=== PATIENT | female | born 1990 | race African-American/Black ===

== ENCOUNTER 2019-11-10 11:46 | Inpatient (IN) | payer OTHER ==
--- NOTE | 2019-11-10 12:10 | BHS.RME ---
Substance Use & Tx History - Substance Use History Heroin Substance amount: 10 bags Frequency of use: Daily Substance route: Inhalation (ex: sniffing or snorting) Date of Last Use: 11/09/19 (11am) Cocaine-Crack Substance amount: $100 Frequency of use: Daily Substance route: Smoking Date of Last Use: 11/10/19 Alcohol Substance amount: 2 six pack beers Frequency of use: Daily Substance route: Oral Date of Last Use: 11/10/19 Nicotine Substance amount: 1 pack Frequency of use: Daily Substance route: Smoking Date of Last Use: 11/10/19 Physical/Psych/Mental Status - Behavior General Behavior: Increased activity (restlessness, agitation) Eye Contact: Normal - Cooperativeness Cooperativeness: Cooperative - Thinking Thought Processes: Tight, Logical, Goal Directed - Physical Health Problems Is patient presently having any pain?: No Does patient presently have any injuries (include location): No Does patient currently have a fever: No Is patient : No COWS - Scale Resting Pulse: 0= [place] 80 or Below Sweatin= Chills/Flushing Restless Observation: 3= Extraneous Movement Pupil Size: 1= Pupils >than Normal Bone or Joint Aches: 2= Severe Diffuse Aches Runny Nose/ Eye Tearin= Nasal Congestion GI Upset > 30mins: 2= Nausea/Diarrhea Tremor Observation: 1= Tremor [place], Not Seen Yawning Observation: 1= 1-2x During Session Anxiety or Irritability: 1=Feels Anxious/Irritable Goose Flesh Skin: 0=Smooth Skin COWS Score: 13 CIWA Nausea/Vomitin-No Nausea/No Vomiting Muscle Tremors: 2 Anxiety: 4-Mod. Anxious/Guarded Agitation: 4-Moderately Restless Paroxysmal Sweats: 1-Minimal Palms Moist Orientation: 0-Oriented Tacttile Disturbances: 0-None Auditory Disturbances: 0-None Visual Disturbances: 0-None Headache: 0-None Present CIWA-Ar Total Score: 11
--- NOTE | 2019-11-10 12:42 | HP ---
COWS - Scale Resting Pulse: 0= [place] 80 or Below Sweatin= Chills/Flushing Restless Observation: 3= Extraneous Movement Pupil Size: 1= Pupils >than Normal Bone or Joint Aches: 2= Severe Diffuse Aches Runny Nose/ Eye Tearin= Nasal Congestion GI Upset > 30mins: 2= Nausea/Diarrhea Tremor Observation: 1= Tremor [place], Not Seen Yawning Observation: 1= 1-2x During Session Anxiety or Irritability: 1=Feels Anxious/Irritable Goose Flesh Skin: 0=Smooth Skin COWS Score: 13 CIWA Score Nausea/Vomitin-No Nausea/No Vomiting Muscle Tremors: 2 Anxiety: 4-Mod. Anxious/Guarded Agitation: 4-Moderately Restless Paroxysmal Sweats: 1-Minimal Palms Moist Orientation: 0-Oriented Tacttile Disturbances: 0-None Auditory Disturbances: 0-None Visual Disturbances: 0-None Headache: 0-None Present CIWA-Ar Total Score: 11 - Admission Criteria [facility] Guidelines: Admission for Medically Managed Detox: Requires at least one of the followin. CIWA greater than 12 2. Seizures within the past 24 hours 3. Delirium tremens within the past 24 hours 4. Hallucinations within the past 24 hours 5. Acute intervention needed for co occurring medical disorder 6. Acute intervention needed for co occurring psychiatric disorder 7. Severe withdrawal that cannot be handled at a lower level of care (continued vomiting, continued diarrhea, abnormal vital signs) requiring intravenous medication and/or fluids 8. Admitting History and Physical - Admission Chief Complaint: " I want to detox from drugs. I want to be health again." History of Present Illness: 29 year old female with history of alcohol dependence and opioid dependence, cocaine use disorder and nicotine dependence. She is new to us but saw her PMD 5 days ago and told she has bronchitis but did not get any antibiotics. He has attempted detox in the past and failed. Substance Use & Tx History - Substance Use History Heroin Substance amount: 10 bags Frequency of use: Daily Substance route: Inhalation (ex: sniffing or snorting) Date of Last Use: 11/09/19 (11am) Cocaine-Crack Substance amount: $100 Frequency of use: Daily Substance route: Smoking Date of Last Use: 11/10/19 Alcohol Substance amount: 2 six pack beers Frequency of use: Daily Substance route: Oral Date of Last Use: 11/10/19 Nicotine Substance amount: 1 pack Frequency of use: Daily Substance route: Smoking Date of Last Use: 11/10/19 PMH: Asthma Psurg: Left Ovarian cyst removal Psych: Bipolar Disorder Lives with mother in [facility] and has no legal problems pending. Urine Tox: positive for THC, JOCELYN, FEN, MOP, BZO....she denies using benzo and may be in the heroin she is using. CIWA=11 COWS =13 Patient meets criteria for detox as she lacks insight into her disorder and is at high risk for overdose as she's overdosed 3 times in the past, last one in 04/2019 History Source: Patient Limitations to Obtaining History: No Limitations - Past Medical History Pulmonary: Yes: Asthma Psych: Yes: Bipolar - Past Surgical History Past Surgical History: Yes: Oopherectomy - Smoking History Smoking history: Current every day smoker Have you smoked in the past 12 months: Yes Aproximately how many cigarettes per day: 20 - Alcohol/Substance Use Hx Alcohol Use: Yes Number of Drinks Daily: 12 History of Substance Use: reports: Cocaine, Heroin Date of Last Use: 11/10/19 - Social History Usual Living Arrangement: Yes: Alone Do you think of yourself as: Straight/Heterosexual ADL: Independent Occupation: unemployed History of Recent Travel: No Admission [facility] Exam Limitations: No Limitations - Ebola screening Have you traveled outside of the country in the last 21 days: No Have you had contact with anyone from an Ebola affected area: No Have you been sick,other than usual withdrawal symptoms: No Do you have a fever: No - Review of Systems Constitutional: Chills, Unintentional Wgt. Loss EENT: reports: No Symptoms Reported Respiratory: reports: No Symptoms reported Cardiac: reports: No Symptoms Reported GI: reports: No Symptoms Reported : reports: No Symptoms Reported Musculoskeletal: reports: No Symptoms Reported Integumentary: reports: No Symptoms Reported Neuro: reports: No Symptoms reported Endocrine: reports: No Symptoms Reported Hematology: reports: No Symptoms Reported Psychiatric: reports: Judgement Intact, Mood/Affect Appropiate, Orientated x3, Agitated, Anxious Other Systems: Reviewed and Negative Patient History - Patient Medical History Hx Anemia: No Hx Asthma: Yes Hx Chronic Obstructive Pulmonary Disease (COPD): No Hx Cancer: No Hx Cardiac Disorders: No Hx Congestive Heart Failure: No Hx Hypertension: No Hx Hypercholesterolemia: No Hx Pacemaker: No HX Cerebrovascular Accident: No Hx Seizures: No Hx Dementia: No Hx Diabetes: No Hx Gastrointestinal Disorders: No Hx Liver Disease: No Hx Genitourinary Disorders: No Hx Sexually Transmitted Disorders: No Hx Renal Disease (ESRD): No Hx Thyroid Disease: No Hx Human Immunodeficiency Virus (HIV): No (tested 2 weeks ago negative) Hx Hepatitis C: No (tested 2 weeks ago negative) Hx Depression: No Hx Suicide Attempt: No Hx Bipolar Disorder: Yes Hx Schizophrenia: No - Patient Surgical History Past Surgical History: Yes Hx Neurologic Surgery: No Hx Cataract Extraction: No Hx Cardiac Surgery: No Hx Lung Surgery: No Hx Breast Surgery: No Hx Breast Biopsy: No Hx Abdominal Surgery: No Hx Appendectomy: No Hx Cholecystectomy: No Hx Genitourinary Surgery: No Hx Section: No Hx Orthopedic Surgery: No Hx Hysterectomy: No Other Surgical History: left ovarian cyst removal Anesthesia Reaction: No - PPD History Previous Implant?: Yes Documented Results: Negative w/o proof Implanted On Prior [facility] Admission?: No PPD to be Administered?: Yes - Reproductive History Patient is a Female of Child Bearing Age (11 -55 yrs old): Yes Last Menstrual Period: 08/18/19 (irregular periods) Patient : No - Smoking Cessation Smoking history: Current every day smoker Have you smoked in the past 12 months: Yes Aproximately how many cigarettes per day: 20 Hx Chewing Tobacco Use: No Initiated information on smoking cessation: Yes 'Breaking Loose' booklet given: 11/10/19 - Substances abused Alcohol Substance route: Oral Frequency: Daily Amount used: 2 six packs beers Age of first use: 12 Date of last use: 11/10/19 Heroin Substance route: Inhalation Frequency: Daily Amount used: 10 bags Age of first use: 28 Date of last use: 11/10/19 Crack Substance route: Smoking Frequency: Daily Amount used: $100 Age of first use: 27 Date of last use: 11/10/19 Admission Physical Exam BHS - Physical General Appearance: Yes: Thin, Tremorous, Irritable, Sweating, Anxious HEENTM: Yes: EOMI, Hearing grossly Normal, Normal ENT Inspection, Normocephalic, Normal Voice, YEHUDA, Pharynx Normal, Tm's normal Respiratory: Yes: Chest Non-Tender, Lungs Clear, Normal Breath Sounds, No Respiratory Distress, No Accessory Muscle Use Neck: Yes: No masses,lesions,Nodules, Supple, Trachea in good position Breast: Yes: Breast Exam Deferred Cardiology: Yes: Regular Rhythm, S1, S2, Tachycardia Abdominal: Yes: Non Tender, Flat, Increased Bowel Sounds Genitourinary: Yes: Within Normal Limits Back: Yes: Normal Inspection Musculoskeletal: Yes: full range of Motion, Gait Steady, Pelvis Stable Extremities: Yes: Normal Capillary Refill, Normal Inspection, Normal Range of Motion, Non-Tender Neurological: Yes: hand packager II-XII NML intact, Fully Oriented, Alert, Motor Strength 5/5, Normal Mood/Affect, Normal Response Integumentary: Yes: Normal Color, Dry, Warm Lymphatic: Yes: Within Normal Limits - Diagnostic (1) Alcohol dependence with withdrawal Current Visit: Yes Status: Acute (2) Opioid dependence with withdrawal Current Visit: Yes Status: Acute (3) Cocaine use disorder Current Visit: Yes Status: Acute (4) Nicotine dependence Current Visit: Yes Status: Acute (5) Asthma Current Visit: Yes Status: Acute (6) Bipolar disorder Current Visit: Yes Status: Acute Cleared for Admission [facility] - Detox or Rehab [facility] Level of Care: Medically Managed Detox Regimen/Protocol: Methadone/Librium Claeared for Rehab Admission: No Screened but not Admitted - Documentation of Visit Screened but not Admitted: No Breathalyzer - Breathalyzer Breathalyzer: 0.004 Inpatient Rehab Admission - Rehab Decision to Admit Inpatient rehab admission?: No
[2019-11-10] MEDS ORDERED: MAGNESIUM CITRATE 300 ML BOTTLE PO PRN (12:56)
[2019-11-10] MEDS ORDERED: METHADONE HCL 10 MG TABLET (FOR DETOX USE ONLY) PO ONE (12:56)
[2019-11-10] MEDS ORDERED: NICOTINE POLACRILEX 2 MG GUM BUC PRN (12:56)
[2019-11-10] MEDS ORDERED: IBUPROFEN 400 MG TABLET (FP) PO PRN (12:56)
[2019-11-10] MEDS ORDERED: ACETAMINOPHEN 325 MG TABLET (FP) PO PRN ×2 (12:56)
[2019-11-10] MEDS ORDERED: BISMUTH SUBSALICYLATE 262 MG/15 ML BTL PO PRN (12:56)
[2019-11-10] MEDS ORDERED: MAG HYDROX/AL HYDROX/SIMETH 30 ML UNIT-DOSE CUP PO PRN (12:56)
[2019-11-10] MEDS ORDERED: MAGNESIUM HYDROX 2400MG/30ML ORAL SUSPENSION 30 ML CUP PO PRN (12:56)
[2019-11-10] MEDS ORDERED: METHOCARBAMOL 500 MG TABLET PO PRN (12:56)
[2019-11-10] MEDS ORDERED: MENTHOL/PHENOL 1 EACH UD MM PRN (12:56)
[2019-11-10] MEDS ORDERED: ONDANSETRON *ODT* 4 MG TABLET SL ONE (12:56)
--- NOTE | 2019-11-10 13:37 | EKG ---
Test Reason : Blood Pressure : / mmHG Vent. Rate : 054 BPM Atrial Rate : 054 BPM P-R Int : 140 ms QRS Dur : 086 ms QT Int : 436 ms P-R-T Axes : 045 067 007 degrees QTc Int : 413 ms SINUS BRADYCARDIA NONSPECIFIC T WAVE ABNORMALITY ABNORMAL ECG NO PREVIOUS ECGS AVAILABLE Confirmed by MD KIAH, RAFA ([id number]) on 11/10/2019 1:37:06 PM Referred By: Confirmed By:RAFA DUPONT MD
[2019-11-10 14:23] VITALS: BMI 19.5
[2019-11-10] MEDS: chlordiazePOXIDE HCL 25 MG CAPSULE PO PRN (14:45)
[2019-11-10] MEDS: hydrOXYzine PAMOATE 25 MG CAPSULE (FP) PO SCH ×3 (14:45→22:24)
[2019-11-10] MEDS: PRENATAL VITAMINS W/ FOLIC ACID TABLET (FP) PO SCH (14:50)
[2019-11-10] MEDS: NICOTINE 7 MG/24 HOURS TOPICAL PATCH TD SCH (14:50)
[2019-11-10 17:11] LABS: HEMATOCRIT 37.5 % (32.4-45.2); HEMOGLOBIN 12.3 GM/dL (10.7-15.3); MCH 30.4 pg (25.7-33.7); MCHC 32.9 g/dl (32.0-36.0); MEAN CELL VOLUME 92.6 fl (80-96); MEAN PLT VOLUME 10.2 fl (7.5-11.1); PLATELET COUNT 219 K/MM3 (134-434); RBC 4.05 M/mm3 (3.60-5.2); RDW 13.7 % (11.6-15.6); WHITE BLOOD COUNT 6.4 K/mm3 (4.0-10.0)
[2019-11-10] MEDS: chlordiazePOXIDE HCL 25 MG CAPSULE PO SCH ×2 (17:17→22:25)
[2019-11-10 17:20] LABS: ALBUMIN 3.4 g/dl (3.4-5.0); BILIRUBIN,TOTAL 0.8 mg/dL (0.2-1); BLOOD UREA NITROGEN 11.3 mg/dL (7-18); CALCIUM 8.6 mg/dL (8.5-10.1); CREATININE 0.9 mg/dL (0.55-1.3); POTASSIUM 3.6 mmol/L (3.5-5.1); TOT PROT 6.8 g/dl (6.4-8.2)
[2019-11-10] MEDS: cloNIDine HCL 0.1 MG TABLET PO PRN (22:24)
[2019-11-10] MEDS: MELATONIN 5 MG TABLETS PO SCH (22:24)
[2019-11-10] MEDS: THIAMINE HCL 100 MG TABLET (FP) PO SCH (22:25)
[2019-11-11] MEDS: chlordiazePOXIDE HCL 25 MG CAPSULE PO SCH ×4 (07:35→23:16)
[2019-11-11] MEDS: hydrOXYzine PAMOATE 25 MG CAPSULE (FP) PO SCH ×5 (07:35→23:15)
[2019-11-11] MEDS ORDERED: METHADONE HCL 5 MG TABLET (FOR DETOX USE ONLY) ONE (09:41)
[2019-11-11] MEDS ORDERED: METHADONE HCL 10 MG TABLET (FOR DETOX USE ONLY) ONE (09:41)
[2019-11-11] MEDS ORDERED: METHADONE (DETOX) 20 MG, METHADONE (DETOX) 5 MG PO ONE (10:00)
[2019-11-11] MEDS: NICOTINE 7 MG/24 HOURS TOPICAL PATCH TD SCH (10:34)
[2019-11-11] MEDS: PRENATAL VITAMINS W/ FOLIC ACID TABLET (FP) PO SCH (10:37)
--- NOTE | 2019-11-11 10:41 | PN ---
[facility] CIWA - CIWA Score Nausea/Vomitin-Mild Nausea/No Vomiting Muscle Tremors: 2 Anxiety: 2 Agitation: 2 Paroxysmal Sweats: No Perspiration Orientation: 0-Oriented Tacttile Disturbances: 1-Very Mild Itch/Numbness Auditory Disturbances: 0-None Visual Disturbances: 0-None Headache: 2-Mild CIWA-Ar Total Score: 10 BHS COWS - Scale Resting Pulse: 0= [place] 80 or Below Sweatin= No chills or Flushing Restless Observation: 0= Sits Still Pupil Size: 1= Pupils >than Normal Bone or Joint Aches: 2= Severe Diffuse Aches Runny Nose/ Eye Tearin= Nasal Congestion GI Upset > 30mins: 2= Nausea/Diarrhea Tremor Observation of Outstretched Hands: 2= Slight Tremor Visible Yawning Observation: 1= 1-2x During Session Anxiety or Irritability: 2=Irritable/Anxious Goose Flesh Skin: 0=Smooth Skin COWS Score: 11 S Progress Note (SOAP) Subjective: alert,irritable,anxious,interrupted sleep,tremor,pain in the body and back,nausea, Objective: 11/11/19 10:40 Vital Signs Temperature 98.0 F 11/11/19 08:48 Pulse Rate 65 11/11/19 08:48 Respiratory Rate 18 11/11/19 08:48 Blood Pressure 151/99 11/11/19 08:48 O2 Sat by Pulse Oximetry (%) 98 11/10/19 20:48 11/11/19 10:40 Laboratory Last Values WBC 6.4 K/mm3 (4.0-10.0) 11/10/19 13:30 RBC 4.05 M/mm3 (3.60-5.2) 11/10/19 13:30 Hgb 12.3 GM/dL (10.7-15.3) 11/10/19 13:30 Hct 37.5 % (32.4-45.2) 11/10/19 13:30 MCV 92.6 fl (80-96) 11/10/19 13:30 MCH 30.4 pg (25.7-33.7) 11/10/19 13:30 MCHC 32.9 g/dl (32.0-36.0) 11/10/19 13:30 RDW 13.7 % (11.6-15.6) 11/10/19 13:30 Plt Count 219 K/MM3 (134-434) 11/10/19 13:30 MPV 10.2 fl (7.5-11.1) 11/10/19 13:30 Sodium 142 mmol/L (136-145) 11/10/19 13:30 Potassium 3.6 mmol/L (3.5-5.1) 11/10/19 13:30 Chloride 108 mmol/L (98-107) H 11/10/19 13:30 Carbon Dioxide 26 mmol/L (21-32) 11/10/19 13:30 Anion Gap 8 MMOL/L (8-16) 11/10/19 13:30 BUN 11.3 mg/dL (7-18) 11/10/19 13:30 Creatinine 0.9 mg/dL (0.55-1.3) 11/10/19 13:30 Est GFR (CKD-EPI)AfAm 98.75 11/10/19 13:30 Est GFR (CKD-EPI)NonAf 85.20 11/10/19 13:30 Random Glucose 104 mg/dL (74-106) 11/10/19 13:30 Calcium 8.6 mg/dL (8.5-10.1) 11/10/19 13:30 Total Bilirubin 0.8 mg/dL (0.2-1) 11/10/19 13:30 AST 15 U/L (15-37) 11/10/19 13:30 ALT 21 U/L (13-61) 11/10/19 13:30 Alkaline Phosphatase 76 U/L (45-117) 11/10/19 13:30 Total Protein 6.8 g/dl (6.4-8.2) 11/10/19 13:30 Albumin 3.4 g/dl (3.4-5.0) 11/10/19 13:30 POC Urine HCG, Qual Negative 11/10/19 12:44 Syphilis Serology Non-reactive (NONREACTIVE) 11/10/19 13:30 COVID-19 (GUY) Not detected (Not Detected) 11/10/19 14:00 Assessment: 11/11/19 10:41 withdrawal symptom Plan: continue detox methadone and librium regimen
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
[2019-11-11] MEDS: cloNIDine HCL 0.1 MG TABLET PO PRN (12:38)
[2019-11-11] MEDS ORDERED: risperiDONE 1 MG TABLET PO SCH (22:00)
[2019-11-11] MEDS: MELATONIN 5 MG TABLETS PO SCH (23:14)
[2019-11-11] MEDS: THIAMINE HCL 100 MG TABLET (FP) PO SCH (23:15)
[2019-11-12] MEDS: chlordiazePOXIDE HCL 25 MG CAPSULE PO SCH ×3 (07:11→17:54)
[2019-11-12] MEDS: hydrOXYzine PAMOATE 25 MG CAPSULE (FP) PO SCH ×4 (07:11→17:34)
[2019-11-12] MEDS ORDERED: METHADONE HCL 10 MG TABLET (FOR DETOX USE ONLY) PO ONE (10:00)
[2019-11-12] MEDS: PRENATAL VITAMINS W/ FOLIC ACID TABLET (FP) PO SCH (10:07)
[2019-11-12] MEDS: NICOTINE 7 MG/24 HOURS TOPICAL PATCH TD SCH (10:07)
--- NOTE | 2019-11-12 10:48 | PN ---
[facility] CIWA - CIWA Score Nausea/Vomitin-No Nausea/No Vomiting Muscle Tremors: None Anxiety: 1-Mildly Anxious Agitation: 1-Slight > Activity Paroxysmal Sweats: No Perspiration Orientation: 0-Oriented Tacttile Disturbances: 0-None Auditory Disturbances: 0-None Visual Disturbances: 0-None Headache: 0-None Present CIWA-Ar Total Score: 2 S COWS - Scale Resting Pulse: 0= [place] 80 or Below Sweatin= No chills or Flushing Restless Observation: 1= Difficult to Sit Still Pupil Size: 0= Normal to Room Light Bone or Joint Aches: 1= Mild Discomfort Runny Nose/ Eye Tearin= None GI Upset > 30mins: 0= None Tremor Observation of Outstretched Hands: 0= None Yawning Observation: 0= None Anxiety or Irritability: 1=Feels Anxious/Irritable Goose Flesh Skin: 0=Smooth Skin COWS Score: 3 S Progress Note (SOAP) Subjective: Pt feels restless, bone aches, anxious Objective: 11/12/19 10:50 PE Gnl: WDWN, in no distress MS:" awake, alert, follows complex commands Motor: moves limbs well Coord: nl, no tremor Laboratory Tests 11/10/19 11/10/19 11/10/19 12:44 13:30 13:30 WBC 6.4 RBC 4.05 Hgb 12.3 Hct 37.5 MCV 92.6 MCH 30.4 MCHC 32.9 RDW 13.7 Plt Count 219 MPV 10.2 Sodium 142 Potassium 3.6 Chloride 108 H Carbon Dioxide 26 Anion Gap 8 BUN 11.3 Creatinine 0.9 Est GFR (CKD-EPI)AfAm 98.75 Est GFR (CKD-EPI)NonAf 85.20 Random Glucose 104 Calcium 8.6 Total Bilirubin 0.8 AST 15 ALT 21 Alkaline Phosphatase 76 Total Protein 6.8 Albumin 3.4 POC Urine HCG, Qual Negative Syphilis Serology COVID-19 (GUY) 11/10/19 11/10/19 13:30 14:00 WBC RBC Hgb Hct MCV MCH MCHC RDW Plt Count MPV Sodium Potassium Chloride Carbon Dioxide Anion Gap BUN Creatinine Est GFR (CKD-EPI)AfAm Est GFR (CKD-EPI)NonAf Random Glucose Calcium Total Bilirubin AST ALT Alkaline Phosphatase Total Protein Albumin POC Urine HCG, Qual Syphilis Serology Non-reactive COVID-19 (GUY) Not detected Home Medication List Medication Instructions Recorded Confirmed Type NK [No Known Home Medication] 11/10/19 11/10/19 History Active Medications Generic Name Dose Route Start Last Admin Trade Name Freq PRN Reason Stop Dose Admin Acetaminophen 650 mg 11/10/19 12:56 Tylenol - PO Q6H PRN PAIN LEVEL 4 - 6 Acetaminophen 650 mg 11/10/19 12:56 Tylenol - PO Q6H PRN FEVER Al Hydroxide/Mg Hydroxide 30 ml 11/10/19 12:56 Mylanta Oral Suspension - PO Q6H PRN DYSPEPSIA Bismuth Subsalicylate 30 ml 11/10/19 12:56 Pepto-Bismol Liquid - PO Q1H PRN DIARRHEA Chlordiazepoxide HCl 25 mg 11/12/19 05:00 11/12/19 10:05 Librium - PO 11/12/19 23:01 25 mg [id number] KYE Administration Chlordiazepoxide HCl 25 mg 11/10/19 12:56 11/10/19 14:45 Librium - PO 11/12/19 23:59 25 mg Q4H PRN Administration WITHDRAWAL(CONT SUBST) Chlordiazepoxide HCl 10 mg 11/13/19 05:00 Librium - PO 11/13/19 23:01 [id number] KYE Chlordiazepoxide HCl 10 mg 11/14/19 05:00 Librium - PO 11/14/19 17:01 Q12H KYE Chlordiazepoxide HCl 10 mg 11/13/19 00:00 Librium - PO 11/14/19 00:00 Q4H PRN WITHDRAWAL(CONT SUBST) Chlordiazepoxide HCl 10 mg 11/15/19 05:00 Librium - PO 11/15/19 05:01 ONCE@0500 ONE Clonidine 0.1 mg 11/10/19 12:56 11/11/19 12:38 Catapres - PO 11/12/19 23:59 0.1 mg Q4H PRN Administration Withdrawal Symptoms Eucalyptus/Menthol/Phenol/Sorbitol 1 each 11/10/19 12:56 Cepastat Lozenge - MM 11/16/19 12:57 Q4H PRN SORE THROAT Hydroxyzine Pamoate 25 mg 11/10/19 14:00 11/12/19 10:05 Vistaril - PO 11/16/19 12:57 25 mg Q4HWA KYE Administration Ibuprofen 400 mg 11/10/19 12:56 Motrin - PO Q6H PRN PAIN LEVEL 1 - 3 Magnesium Citrate 300 ml 11/10/19 12:56 Citroma - PO Q48H PRN CONSTIPATION Magnesium Hydroxide 30 ml 11/10/19 12:56 Milk Of Magnesia - PO PRN PRN CONSTIPATION Melatonin 5 mg 11/10/19 22:00 11/11/19 23:14 Melatonin PO Not Given HS KYE Methadone HCl 5 mg 11/15/19 06:00 Dolophine - PO 11/15/19 06:01 ONCE@0600 ONE Methadone HCl 10 mg 11/14/19 10:00 Dolophine - PO 11/14/19 10:01 ONCE ONE Methadone HCl 10 mg/ Methadone 15 mg 11/13/19 10:00 HCl 5 mg PO 11/13/19 10:01 ONCE ONE Methocarbamol 500 mg 11/10/19 12:56 Robaxin - PO 11/16/19 12:57 Q6H PRN MUSCLE SPASMS Nicotine 7 mg 11/10/19 13:00 11/12/19 10:07 Nicoderm Patch - TD Not Given DAILY [facility] Nicotine Polacrilex 2 mg 11/10/19 12:56 Nicorette Gum - BUC Q2H PRN NICOTINE REPLACEMENT RX Multivit/Folic Acid/Iron 1 tab 11/10/19 13:00 11/12/19 10:07 Vitamins (Sjr) - PO 1 tab DAILY KYE Administration Risperidone 1 mg 11/11/19 22:00 11/11/19 23:15 Risperdal - PO Not Given HS [facility] Thiamine HCl 100 mg 11/10/19 22:00 11/11/19 23:15 Vitamin B1 - PO Not Given HS [facility] Vital Signs - 24 hr 11/11/19 11/11/19 11/11/19 12:34 17:12 20:52 Temperature 97.5 F L 98.2 F 97.3 F L Pulse Rate 79 61 62 Respiratory 18 18 16 Rate Blood Pressure 150/99 134/81 136/90 O2 Sat by Pulse 99 99 98 Oximetry (%) 11/12/19 08:37 Temperature 96.7 F L Pulse Rate 61 Respiratory 18 Rate Blood Pressure 111/62 O2 Sat by Pulse Oximetry (%) Assessment: 11/12/19 10:49 29 year old female with history of alcohol dependence and opioid dependence, cocaine use disorder and nicotine dependence. She is new to us but saw her PMD 5 days ago and told she has bronchitis but did not get any antibiotics. He has attempted detox in the past and failed. 1. Opioid use disorder 2. Alcohol use disorder 3. Cocaine dependence 4. Nicotine dependence 5.Mood disorder, bipolar, substance induced mood disorder: seen by Psychiatry Plan: 1. Librium detox protocol, projected completion 11/14 2. Methadone protocol 3. Psychiatry ordered Risperdal
[2019-11-12] MEDS ORDERED: guaiFENesin 200 MG/10 ML 10 ML UNIT-DOSE CUPS PO PRN (15:59)
[2019-11-12] MEDS: chlordiazePOXIDE HCL 25 MG CAPSULE PO PRN (17:34)
--- NOTE | 2019-11-12 18:38 | DS ---
[facility] Detox Discharge Summary Admission Date: 11/10/19 Discharge Date: 11/12/19 (AMA) - History Present History: Alcohol Dependence, Cocaine Dependence, Opioid Dependence Additional Comments: Patient seen and evaluated, alert and oriented x 3. In no acute respiratory distress. Full ROM, ambulatory on the unit. Skin warm to touch, no lesions noted. Patient stated " i just want to home", all attempts to encourage patient to stay failed. Pertinent Past History: History of Asthma, Bronchitis, left ovarian cyst removal, Bipolar, Alcohol, heroin, Crack/cocaine and nicotine use disorder. - Physical Exam Results Vital Signs: Vital Signs Temperature 97.3 F L 11/12/19 12:37 Pulse Rate 88 11/12/19 12:37 Respiratory Rate 18 11/12/19 12:37 Blood Pressure 140/95 11/12/19 12:37 O2 Sat by Pulse Oximetry (%) 94 L 11/12/19 12:37 Vital Signs 11/12/19 12:37 Temperature 97.3 F L Pulse Rate 88 Respiratory 18 Rate Blood Pressure 140/95 O2 Sat by Pulse 94 L Oximetry (%) Laboratory Last Values WBC 6.4 K/mm3 (4.0-10.0) 11/10/19 13:30 RBC 4.05 M/mm3 (3.60-5.2) 11/10/19 13:30 Hgb 12.3 GM/dL (10.7-15.3) 11/10/19 13:30 Hct 37.5 % (32.4-45.2) 11/10/19 13:30 MCV 92.6 fl (80-96) 11/10/19 13:30 MCH 30.4 pg (25.7-33.7) 11/10/19 13:30 MCHC 32.9 g/dl (32.0-36.0) 11/10/19 13:30 RDW 13.7 % (11.6-15.6) 11/10/19 13:30 Plt Count 219 K/MM3 (134-434) 11/10/19 13:30 MPV 10.2 fl (7.5-11.1) 11/10/19 13:30 Sodium 142 mmol/L (136-145) 11/10/19 13:30 Potassium 3.6 mmol/L (3.5-5.1) 11/10/19 13:30 Chloride 108 mmol/L (98-107) H 11/10/19 13:30 Carbon Dioxide 26 mmol/L (21-32) 11/10/19 13:30 Anion Gap 8 MMOL/L (8-16) 11/10/19 13:30 BUN 11.3 mg/dL (7-18) 11/10/19 13:30 Creatinine 0.9 mg/dL (0.55-1.3) 11/10/19 13:30 Est GFR (CKD-EPI)AfAm 98.75 11/10/19 13:30 Est GFR (CKD-EPI)NonAf 85.20 11/10/19 13:30 Random Glucose 104 mg/dL (74-106) 11/10/19 13:30 Calcium 8.6 mg/dL (8.5-10.1) 11/10/19 13:30 Total Bilirubin 0.8 mg/dL (0.2-1) 11/10/19 13:30 AST 15 U/L (15-37) 11/10/19 13:30 ALT 21 U/L (13-61) 11/10/19 13:30 Alkaline Phosphatase 76 U/L (45-117) 11/10/19 13:30 Total Protein 6.8 g/dl (6.4-8.2) 11/10/19 13:30 Albumin 3.4 g/dl (3.4-5.0) 11/10/19 13:30 POC Urine HCG, Qual Negative 11/10/19 12:44 Syphilis Serology Non-reactive (NONREACTIVE) 11/10/19 13:30 COVID-19 (GUY) Not detected (Not Detected) 11/10/19 14:00 Labs noted. Pertinent Admission Physical Exam Findings: Withdrawal symptoms. - Treatment Hospital Course: Detox Protocol Followed - Medication Discharge Medications: Ambulatory Orders NK [No Known Home Medication] 11/10/19 - Diagnosis (1) Alcohol dependence with withdrawal Current Visit: Yes Status: Acute (2) Cocaine use disorder Current Visit: Yes Status: Chronic (3) Nicotine dependence Current Visit: Yes Status: Chronic (4) Opioid dependence with withdrawal Current Visit: Yes Status: Chronic - AMA Did Patient Leave Against Medical Advice: Yes
[2019-11-12 19:05] VITALS: BP 147/89; PULSE 64; TEMP 97.7
[2019-11-13] MEDS ORDERED: chlordiazePOXIDE HCL 10 MG CAPSULE PO PRN
[2019-11-13] MEDS ORDERED: chlordiazePOXIDE HCL 10 MG CAPSULE PO SCH (05:00)
[2019-11-13] MEDS ORDERED: METHADONE (DETOX) 10 MG, METHADONE (DETOX) 5 MG PO ONE (10:00)
[2019-11-14] MEDS ORDERED: chlordiazePOXIDE HCL 10 MG CAPSULE PO SCH (05:00)
[2019-11-14] MEDS ORDERED: METHADONE HCL 10 MG TABLET (FOR DETOX USE ONLY) PO ONE (10:00)
[2019-11-15] MEDS ORDERED: chlordiazePOXIDE HCL 10 MG CAPSULE PO ONE (05:00)
[2019-11-15] MEDS ORDERED: METHADONE HCL 5 MG TABLET (FOR DETOX USE ONLY) PO ONE (06:00)
== END 2019-11-12 18:20 | disposition left against medical advice (07) | DRG 770 ==
LOC: EDSEX → YASAS 11:46 → Y3N 13:57
PROVIDERS: ADMIT Allergy & Immunology; ATTEND Allergy & Immunology
PROC: HZ2ZZZZ Detoxification Services for Substance Abuse Treatment (ICD-10-PCS; principal; 2019-11-10)
DX: F11.23 Opioid dependence with withdrawal (principal); F10.230 Alcohol dependence with withdrawal, uncomplicated; F14.20 Cocaine dependence, uncomplicated; F17.210 Nicotine dependence, cigarettes, uncomplicated; F39 Unspecified mood [affective] disorder; F31.9 Bipolar disorder, unspecified; F19.24 Other psychoactive substance dependence with psychoactive substance-induced mood disorder; J45.909 Unspecified asthma, uncomplicated; R00.0 Tachycardia, unspecified; Z91.013 Allergy to seafood
CPT/HCPCS: 36415; 71045-TC-FY; 80053; 81025; 85027; 86780; 93005; 93010; J0735; U0003

== ENCOUNTER 2021-06-09 16:51 | Inpatient (IN) | payer OTHER ==
[2021-06-09] MEDS ORDERED: IBUPROFEN 400 MG TABLET (FP) PO PRN (21:37)
[2021-06-09] MEDS ORDERED: BISMUTH SUBSALICYLATE 524 MG/30 ML PO PRN (21:37)
[2021-06-09] MEDS ORDERED: ACETAMINOPHEN 325 MG TABLET (FP) PO PRN ×2 (21:37)
[2021-06-09] MEDS ORDERED: MAG HYDROX/AL HYDROX/SIMETH 30 ML UNIT-DOSE CUP PO PRN (21:37)
[2021-06-09] MEDS ORDERED: NICOTINE 10 MG CARTRIDGE (INHALER) IH PRN (21:37)
[2021-06-09] MEDS ORDERED: LOPERAMIDE HCL 2 MG CAPSULE PO PRN (21:37)
[2021-06-09] MEDS ORDERED: ONDANSETRON *ODT* 4 MG TABLET SL PRN (21:37)
[2021-06-09] MEDS ORDERED: MAGNESIUM CITRATE 300 ML BOTTLE PO PRN (21:37)
[2021-06-09] MEDS ORDERED: MENTHOL/PHENOL 1 EACH UD MM PRN (21:37)
[2021-06-09] MEDS ORDERED: MAGNESIUM HYDROX 2400MG/30ML ORAL SUSPENSION 30 ML CUP PO PRN (21:37)
[2021-06-09] MEDS ORDERED: cloNIDine HCL 0.1 MG TABLET PO ONE (21:40)
[2021-06-09] MEDS ORDERED: cloNIDine HCL 0.1 MG TABLET ONE (21:52)
[2021-06-09] MEDS ORDERED: ONDANSETRON *ODT* 4 MG TABLET ONE (22:05)
[2021-06-09 22:21] VITALS: BMI 18.0
[2021-06-09] MEDS: MELATONIN 5 MG TABLETS PO SCH (23:00)
[2021-06-09] MEDS: THIAMINE HCL 100 MG TABLET (FP) PO SCH (23:01)
[2021-06-10] MEDS ORDERED: methaDONE HCL 10 MG TABLET (FOR DETOX USE ONLY) PO ONE ×2 (01:00→10:00)
[2021-06-10] MEDS: cloNIDine HCL 0.1 MG TABLET PO PRN (04:52)
[2021-06-10] MEDS ORDERED: hydrOXYzine PAMOATE 50 MG CAPSULE (FP) PO ONE (10:00)
[2021-06-10] MEDS: PRENATAL VITAMINS W/ FOLIC ACID TABLET (FP) PO SCH (10:12)
[2021-06-10] MEDS: NICOTINE 14 MG/24 HOURS TOPICAL PATCH TD SCH (10:12)
[2021-06-10] MEDS ORDERED: ONDANSETRON *ODT* 4 MG TABLET SL ONE (10:15)
[2021-06-10] MEDS: METHOCARBAMOL 500 MG TABLET PO PRN (10:15)
[2021-06-10] MEDS ORDERED: IBUPROFEN 400 MG TABLET (FP) PO ONE (10:20)
[2021-06-10 12:44] LABS: HEMATOCRIT 44.2 % (32.4-45.2); HEMOGLOBIN 14.5 GM/dL (10.7-15.3); MCH 27.3 pg (25.7-33.7); MCHC 32.8 g/dl (32.0-36.0); MEAN CELL VOLUME 83.3 fl (80-96); MEAN PLT VOLUME 8.7 fl (7.5-11.1); PLATELET COUNT 300 10^3/uL (134-434); RDW 16.8 % (11.6-15.6); WHITE BLOOD COUNT 7.7 K/mm3 (4.0-10.0)
[2021-06-10 12:50] LABS: ALBUMIN 3.8 g/dl (3.4-5.0); BLOOD UREA NITROGEN 15.8 mg/dL (7-18); CALCIUM 9.6 mg/dL (8.5-10.1)
[2021-06-10 12:53] LABS: CREATININE 0.6 mg/dL (0.55-1.3)
[2021-06-10 12:54] LABS: BILIRUBIN,TOTAL 0.3 mg/dL (0.2-1); TOT PROT 7.4 g/dl (6.4-8.2)
[2021-06-10] MEDS ORDERED: METHOCARBAMOL 500 MG TABLET PO ONE (15:00)
[2021-06-10] MEDS: THIAMINE HCL 100 MG TABLET (FP) PO SCH (23:31)
[2021-06-10] MEDS: MELATONIN 5 MG TABLETS PO SCH (23:31)
[2021-06-11] MEDS: METHOCARBAMOL 500 MG TABLET PO PRN ×2 (06:37→22:23)
[2021-06-11] MEDS ORDERED: methaDONE HCL 10 MG TABLET (FOR DETOX USE ONLY) ONE (08:57)
[2021-06-11] MEDS: PRENATAL VITAMINS W/ FOLIC ACID TABLET (FP) PO SCH (10:06)
[2021-06-11] MEDS: cloNIDine HCL 0.1 MG TABLET PO PRN (10:06)
[2021-06-11] MEDS: NICOTINE 14 MG/24 HOURS TOPICAL PATCH TD SCH (10:08)
[2021-06-11] MEDS: amLODIPine BESYLATE 5 MG TABLET (FP) PO SCH (11:58)
[2021-06-11 16:07] LABS: SARS-CoV-2 NAA Not Detected (Not Detected)
[2021-06-11 16:07] LABS: SARS-CoV-2 NAA Not Detected (Not Detected)
[2021-06-11] MEDS: THIAMINE HCL 100 MG TABLET (FP) PO SCH (22:23)
[2021-06-11] MEDS: MELATONIN 5 MG TABLETS PO SCH (22:24)
[2021-06-12] MEDS ORDERED: methaDONE HCL 10 MG TABLET (FOR DETOX USE ONLY) PO ONE (10:00)
[2021-06-12] MEDS: PRENATAL VITAMINS W/ FOLIC ACID TABLET (FP) PO SCH (10:08)
[2021-06-12] MEDS: METHOCARBAMOL 500 MG TABLET PO PRN ×3 (10:08→22:53)
[2021-06-12] MEDS: amLODIPine BESYLATE 5 MG TABLET (FP) PO SCH (10:08)
[2021-06-12] MEDS: NICOTINE 14 MG/24 HOURS TOPICAL PATCH TD SCH (10:09)
[2021-06-12] MEDS ORDERED: PENICILLIN G BENZATHINE 2,400,000 UNIT/4 ML PFS IM ONE ×2 (16:45→21:00)
[2021-06-12] MEDS: cloNIDine HCL 0.1 MG TABLET PO PRN (18:05)
[2021-06-12] MEDS: MELATONIN 5 MG TABLETS PO SCH (22:51)
[2021-06-12] MEDS: THIAMINE HCL 100 MG TABLET (FP) PO SCH (22:52)
[2021-06-13] MEDS ORDERED: methaDONE HCL 10 MG TABLET (FOR DETOX USE ONLY) ONE (09:29)
[2021-06-13] MEDS: PRENATAL VITAMINS W/ FOLIC ACID TABLET (FP) PO SCH (10:14)
[2021-06-13] MEDS: amLODIPine BESYLATE 5 MG TABLET (FP) PO SCH (10:14)
[2021-06-13] MEDS: NICOTINE 14 MG/24 HOURS TOPICAL PATCH TD SCH (10:15)
[2021-06-13 15:00] LABS: HIV INTERPRETATION NEGATIVE (NEGATIVE)
[2021-06-13] MEDS: MELATONIN 5 MG TABLETS PO SCH (22:15)
[2021-06-13] MEDS: THIAMINE HCL 100 MG TABLET (FP) PO SCH (22:15)
[2021-06-14] MEDS: METHOCARBAMOL 500 MG TABLET PO PRN (09:59)
[2021-06-14] MEDS: amLODIPine BESYLATE 5 MG TABLET (FP) PO SCH (09:59)
[2021-06-14] MEDS: NICOTINE 14 MG/24 HOURS TOPICAL PATCH TD SCH (09:59)
[2021-06-14] MEDS: PRENATAL VITAMINS W/ FOLIC ACID TABLET (FP) PO SCH (09:59)
[2021-06-14] MEDS ORDERED: methaDONE HCL 10 MG TABLET (FOR DETOX USE ONLY) PO ONE (10:00)
[2021-06-14] MEDS: MELATONIN 5 MG TABLETS PO SCH (22:08)
[2021-06-14] MEDS: THIAMINE HCL 100 MG TABLET (FP) PO SCH (22:09)
[2021-06-15 06:26] VITALS: BP 130/71; PULSE 65; TEMP 98
[2021-06-19] MEDS ORDERED: PENICILLIN G BENZATHINE 2,400,000 UNIT/4 ML PFS IM ONE (10:00)
[2021-06-26] MEDS ORDERED: PENICILLIN G BENZATHINE 2,400,000 UNIT/4 ML PFS IM ONE (10:00)
== END 2021-06-15 09:09 | disposition home or self-care (01) | DRG 773 ==
LOC: YASAS 16:51 → Y6N 21:50
PROVIDERS: ADMIT Allergy & Immunology; ATTEND Allergy & Immunology
PROC: HZ2ZZZZ Detoxification Services for Substance Abuse Treatment (ICD-10-PCS; principal; 2021-06-09)
DX: F11.23 Opioid dependence with withdrawal (principal); F14.20 Cocaine dependence, uncomplicated; F17.210 Nicotine dependence, cigarettes, uncomplicated; F31.9 Bipolar disorder, unspecified; A53.0 Latent syphilis, unspecified as early or late; A53.9 Syphilis, unspecified; J45.909 Unspecified asthma, uncomplicated; Z86.11 Personal history of tuberculosis; Z86.19 Personal history of other infectious and parasitic diseases; Z59.00 Homelessness unspecified; Z56.0 Unemployment, unspecified
CPT/HCPCS: 36415; 71046-TC-FY; 80053; 81025; 85027; 86593; 86780; 87389; 93005; 93010; C9803; J0735; Q0162; U0003; U0005

== ENCOUNTER 2022-02-19 10:59 | Inpatient (IN) | payer OTHER ==
[2022-02-19 11:49] VITALS: BMI 21.9
[2022-02-19] MEDS ORDERED: ACETAMINOPHEN 325 MG TABLET (FP) PO PRN ×2 (13:00)
[2022-02-19] MEDS ORDERED: BISMUTH SUBSALICYLATE 524 MG/30 ML PO PRN (13:00)
[2022-02-19] MEDS ORDERED: BENZOCAINE/MENTHOL (CHLORASEPTIC ) LOZENGE MM PRN (13:00)
[2022-02-19] MEDS ORDERED: MAGNESIUM CITRATE 300 ML BOTTLE PO PRN (13:00)
[2022-02-19] MEDS ORDERED: NALOXONE HCL (KLOXXADO) 8 MG SPRAY NS PRN (13:00)
[2022-02-19] MEDS ORDERED: IBUPROFEN 600 MG TABLET (FP) PO PRN (13:00)
[2022-02-19] MEDS ORDERED: cloNIDine HCL 0.1 MG TABLET PO PRN (13:00)
[2022-02-19] MEDS ORDERED: ONDANSETRON *ODT* 4 MG TABLET SL PRN (13:00)
[2022-02-19] MEDS ORDERED: MAG HYDROX/AL HYDROX/SIMETH 30 ML UNIT-DOSE CUP PO PRN (13:00)
[2022-02-19] MEDS ORDERED: MAGNESIUM HYDROX 2400MG/30ML ORAL SUSPENSION 30 ML CUP PO PRN (13:00)
[2022-02-19] MEDS ORDERED: NICOTINE 10 MG CARTRIDGE (INHALER) IH PRN (13:00)
[2022-02-19] MEDS ORDERED: IBUPROFEN 400 MG TABLET (FP) PO PRN (13:00)
[2022-02-19] MEDS ORDERED: LOPERAMIDE HCL 2 MG CAPSULE PO PRN (13:00)
[2022-02-19] MEDS ORDERED: DICYCLOMINE HCL 10 MG CAPSULE PO PRN (13:00)
[2022-02-19] MEDS ORDERED: methaDONE HCL 10 MG TABLET (FOR DETOX USE ONLY) PO ONE (14:15)
[2022-02-19] MEDS: NICOTINE 14 MG/24 HOURS TOPICAL PATCH TD SCH (14:22)
[2022-02-19] MEDS: PRENATAL VITAMINS W/ FOLIC ACID TABLET (FP) PO SCH (14:22)
[2022-02-19] MEDS: CIPROFLOXACIN HCL 0.3% OPHTH 2.5ML BOTTLE OU SCH ×2 (18:00→22:58)
[2022-02-19] MEDS: hydrOXYzine PAMOATE 25 MG CAPSULE (FP) PO PRN (18:45)
[2022-02-19] MEDS: MELATONIN 5 MG TABLETS PO SCH (22:34)
[2022-02-19] MEDS: THIAMINE HCL 100 MG TABLET (FP) PO SCH (22:34)
[2022-02-19] MEDS: METHOCARBAMOL 500 MG TABLET PO PRN (22:35)
[2022-02-20] MEDS: CIPROFLOXACIN HCL 0.3% OPHTH 2.5ML BOTTLE OU SCH ×2 (06:11→10:14)
[2022-02-20] MEDS: hydrOXYzine PAMOATE 25 MG CAPSULE (FP) PO PRN ×2 (10:14→17:24)
[2022-02-20] MEDS: NICOTINE 14 MG/24 HOURS TOPICAL PATCH TD SCH (10:16)
[2022-02-20] MEDS: PRENATAL VITAMINS W/ FOLIC ACID TABLET (FP) PO SCH (10:16)
[2022-02-20] MEDS: ERYTHROMYCIN 0.5% OPHTHALMIC OINTMENT 3.5 GM TUBE OD SCH ×2 (14:30→22:37)
[2022-02-20] MEDS: AMOX TR/POT CLAV 875MG/125MG TABLETS (FP) PO SCH ×2 (14:30→17:23)
[2022-02-20 15:42] LABS: MEAN PLT VOLUME 10.1 fl (7.5-11.1); WHITE BLOOD COUNT 7.5 K/mm3 (4.0-10.0)
[2022-02-20 15:43] LABS: HEMATOCRIT 36.9 % (32.4-45.2); HEMOGLOBIN 12.3 GM/dL (10.7-15.3); MCH 30.2 pg (25.7-33.7); MCHC 33.3 g/dl (32.0-36.0); MEAN CELL VOLUME 90.6 fl (80-96); PLATELET COUNT 242 10^3/uL (134-434); RBC 4.07 M/mm3 (3.60-5.2)
[2022-02-20 16:19] LABS: ALBUMIN 3.3 g/dl (3.4-5.0); CALCIUM 9.1 mg/dL (8.5-10.1)
[2022-02-20 16:20] LABS: BLOOD UREA NITROGEN 8.5 mg/dL (7-18)
[2022-02-20 16:22] LABS: CREATININE 0.7 mg/dL (0.55-1.3)
[2022-02-20 16:24] LABS: BILIRUBIN,TOTAL 0.3 mg/dL (0.2-1); TOT PROT 6.9 g/dl (6.4-8.2)
[2022-02-20] MEDS: MELATONIN 5 MG TABLETS PO SCH (22:36)
[2022-02-20] MEDS: traZODone HCL 50 MG TABLET (FP) PO SCH (22:36)
[2022-02-20] MEDS: risperiDONE 1 MG TABLET PO SCH (22:36)
[2022-02-20] MEDS: THIAMINE HCL 100 MG TABLET (FP) PO SCH (22:36)
[2022-02-21] MEDS: AMOX TR/POT CLAV 875MG/125MG TABLETS (FP) PO SCH ×2 (07:04→17:51)
[2022-02-21] MEDS ORDERED: methaDONE HCL 10 MG TABLET (FOR DETOX USE ONLY) PO ONE (10:00)
[2022-02-21] MEDS: METHOCARBAMOL 500 MG TABLET PO PRN (10:41)
[2022-02-21] MEDS: ERYTHROMYCIN 0.5% OPHTHALMIC OINTMENT 3.5 GM TUBE OD SCH ×2 (10:41→23:12)
[2022-02-21] MEDS: risperiDONE 1 MG TABLET PO SCH ×2 (10:41→22:19)
[2022-02-21] MEDS: NICOTINE 14 MG/24 HOURS TOPICAL PATCH TD SCH (10:42)
[2022-02-21] MEDS: PRENATAL VITAMINS W/ FOLIC ACID TABLET (FP) PO SCH (10:42)
[2022-02-21] MEDS: MELATONIN 5 MG TABLETS PO SCH (22:18)
[2022-02-21] MEDS: traZODone HCL 50 MG TABLET (FP) PO SCH (22:19)
[2022-02-21] MEDS: THIAMINE HCL 100 MG TABLET (FP) PO SCH (22:19)
[2022-02-22] MEDS: AMOX TR/POT CLAV 875MG/125MG TABLETS (FP) PO SCH ×2 (07:09→17:32)
[2022-02-22] MEDS: PRENATAL VITAMINS W/ FOLIC ACID TABLET (FP) PO SCH (10:29)
[2022-02-22] MEDS: METHOCARBAMOL 500 MG TABLET PO PRN (10:29)
[2022-02-22] MEDS: risperiDONE 1 MG TABLET PO SCH ×2 (10:29→22:29)
[2022-02-22] MEDS: NICOTINE 14 MG/24 HOURS TOPICAL PATCH TD SCH (10:31)
[2022-02-22] MEDS: ERYTHROMYCIN 0.5% OPHTHALMIC OINTMENT 3.5 GM TUBE OD SCH ×2 (10:31→22:29)
[2022-02-22] MEDS: MELATONIN 5 MG TABLETS PO SCH (22:29)
[2022-02-22] MEDS: THIAMINE HCL 100 MG TABLET (FP) PO SCH (22:29)
[2022-02-22] MEDS: traZODone HCL 50 MG TABLET (FP) PO SCH (22:29)
[2022-02-23] MEDS: AMOX TR/POT CLAV 875MG/125MG TABLETS (FP) PO SCH ×2 (09:00→17:52)
[2022-02-23] MEDS ORDERED: methaDONE HCL 10 MG TABLET (FOR DETOX USE ONLY) PO ONE (10:00)
[2022-02-23] MEDS: risperiDONE 1 MG TABLET PO SCH ×2 (10:23→22:26)
[2022-02-23] MEDS: PRENATAL VITAMINS W/ FOLIC ACID TABLET (FP) PO SCH (10:23)
[2022-02-23] MEDS: ERYTHROMYCIN 0.5% OPHTHALMIC OINTMENT 3.5 GM TUBE OD SCH ×2 (10:24→22:26)
[2022-02-23] MEDS: NICOTINE 14 MG/24 HOURS TOPICAL PATCH TD SCH (10:24)
[2022-02-23] MEDS: traZODone HCL 50 MG TABLET (FP) PO SCH (22:26)
[2022-02-23] MEDS: MELATONIN 5 MG TABLETS PO SCH (22:26)
[2022-02-23] MEDS: THIAMINE HCL 100 MG TABLET (FP) PO SCH (22:26)
[2022-02-24 06:18] VITALS: RESP 18
[2022-02-24] MEDS: AMOX TR/POT CLAV 875MG/125MG TABLETS (FP) PO SCH (08:52)
[2022-02-24 09:04] VITALS: BP 110/69; PULSE 66; TEMP 98.1
[2022-02-24] MEDS: risperiDONE 1 MG TABLET PO SCH (10:38)
[2022-02-24] MEDS: PRENATAL VITAMINS W/ FOLIC ACID TABLET (FP) PO SCH (10:38)
[2022-02-24] MEDS: ERYTHROMYCIN 0.5% OPHTHALMIC OINTMENT 3.5 GM TUBE OD SCH (10:39)
[2022-02-24] MEDS: NICOTINE 14 MG/24 HOURS TOPICAL PATCH TD SCH (10:39)
== END 2022-02-24 12:19 | disposition other institution (70) | DRG 773 ==
LOC: YASAS 10:59 → Y3N 13:04
PROVIDERS: ADMIT Allergy & Immunology; ATTEND Surgery
PROC: HZ2ZZZZ Detoxification Services for Substance Abuse Treatment (ICD-10-PCS; principal; 2022-02-19)
DX: F11.23 Opioid dependence with withdrawal (principal); F10.230 Alcohol dependence with withdrawal, uncomplicated; F14.20 Cocaine dependence, uncomplicated; F12.20 Cannabis dependence, uncomplicated; F17.210 Nicotine dependence, cigarettes, uncomplicated; F31.9 Bipolar disorder, unspecified; F19.24 Other psychoactive substance dependence with psychoactive substance-induced mood disorder; G47.00 Insomnia, unspecified; J45.909 Unspecified asthma, uncomplicated; R76.11 Nonspecific reaction to tuberculin skin test without active tuberculosis; R76.8 Other specified abnormal immunological findings in serum; Z86.19 Personal history of other infectious and parasitic diseases; Z56.0 Unemployment, unspecified; Z59.02 Unsheltered homelessness
CPT/HCPCS: 36415; 71046-TC-FY; 80053; 81025; 85027; 86593; 86780; 87811; C9803-CS; J2794; U0003; U0005